=== PATIENT | female | born 1995 | race African-American/Black ===

== ENCOUNTER 2018-03-27 00:57 | Inpatient (IN) | payer MEDICAID ==
[2018-03-27] MEDS ORDERED: LR 1,000 ML IV SCH (02:30)
[2018-03-27] MEDS ORDERED: ONDANSETRON 4 MG/2 ML VIAL IVP ONE (02:30)
[2018-03-27] MEDS ORDERED: LR 500 ML IV ONE (02:30)
[2018-03-27] MEDS ORDERED: IBUPROFEN 600 MG TAB PO PRN (03:03)
[2018-03-27] MEDS ORDERED: LR 1,000 ML IV PRN (03:03)
[2018-03-27] MEDS ORDERED: MISOPROSTOL 200 MCG TAB PR PRN (03:03)
[2018-03-27] MEDS ORDERED: OLIVE OIL 118 ML BTL MISC PRN (03:03)
[2018-03-27] MEDS ORDERED: TERBUTALINE SULFATE 1 MG/ML VIAL IV PRN (03:03)
[2018-03-27] MEDS ORDERED: EPSOM SALT 454 GM TP PRN (03:03)
[2018-03-27] MEDS ORDERED: OXYTOCIN/RINGERS LACTATE 1,000 ML IV PRN (03:03)
[2018-03-27] MEDS ORDERED: LIDOCAINE 1% 300 MG/30 ML SDV SC PRN (03:03)
[2018-03-27] MEDS ORDERED: BUPIVACAINE 0.25% 30 ML SDV ONE (03:40)
[2018-03-27] MEDS ORDERED: PHENYLEPHRINE HCL 100 MCG/ML SYR ONE (03:40)
[2018-03-27 03:43] LABS: PLATELET COUNT 173 10^3/uL (150-400)
[2018-03-27] MEDS ORDERED: fentaNYL 200 MCG, BUPIVACAINE 0.5% 20 ML in NS 100 ML EP SCH (04:00)
[2018-03-27] MEDS ORDERED: ONDANSETRON 4 MG/2 ML VIAL IVP PRN (04:48)
[2018-03-27] MEDS ORDERED: PHENYLEPHRINE HCL 100 MCG/ML SYR IVP PRN (04:48)
[2018-03-27] MEDS ORDERED: METOCLOPRAMIDE 10 MG/2 ML VIAL IVP PRN (04:48)
[2018-03-27] MEDS ORDERED: NALOXONE HCL 0.4 MG/ML INJ IVP PRN (04:48)
--- NOTE | 2018-03-27 04:48 | PREANESOB ---
Obstetric Pre-Anesthesia Info - General Info Proposed Procedure: CSE : 1 Para: 0 DANIEL: 03/26/18 Gestational Age: 40 week(s) and 1 day(s) - Info Status: Full Term Monitors: External FHR Pattern: Reassuring - Labor Status Cervical Dilation per last OB SVE: 5 Station per last OB SVE: 0 PIH: No Magnesium Sulfate in Use: No Indications for Labor Analgesia: Pain Control Anesthesia Allergies/Adverse Reactions: Allergy/AdvReac Type Severity Reaction Status Date / Time No Known Allergies Allergy Unverified 03/14/16 21:10 Home Medications: Medication Instructions Recorded NK [No Known Home Meds] 03/14/16 Visit Medications: Generic Name Dose Route Start Last Admin Trade Name Freq PRN Reason Stop Dose Admin Lactated Ringer's 1,000 mls @ 125 mls/hr 03/27/18 02:30 Lr IV 09/23/18 02:29 CONT KERON Lactated Ringer's 1,000 mls @ 0 mls/hr 03/27/18 03:03 Lr IV 03/28/18 03:02 PRN PRN SEE PROTOCOL CONDITIONS Protocol Per Protocol Oxytocin/Lactated Ringer's 1,000 mls @ 125 mls/hr 03/27/18 03:03 Pitocin 20 Units/Lr (Premix) IV PRN PRN Post bleeding Fentanyl 200 mcg/ Bupivacaine 100 mls @ 0 mls/hr 03/27/18 04:00 HCl 20 ml/ Sodium Chloride EP 04/06/18 03:59 CONT KERON Protocol As Directed Ibuprofen 600 mg 03/27/18 03:03 Motrin PO ONCE PRN post , pain Lidocaine HCl 300 mg 03/27/18 03:03 Lidocaine Hcl 1% SC 09/23/18 03:02 ONCE PRN episiotomy Magnesium Sulfate 454 gm 03/27/18 03:03 Epsom Salt TP 09/23/18 03:02 Q1H PRN perineal discomfort Misoprostol 800 - 1,000 mcg 03/27/18 03:03 Cytotec [place] ONCE PRN Vaginal Atony/Bleeding [place] Oil 118 ml 03/27/18 03:03 Sweet Oil MISC 09/23/18 03:02 ONCE PRN perineal massage Terbutaline Sulfate 0.25 mg 03/27/18 03:03 Brethine IV 09/23/18 03:02 ONCE PRN Tachysystole Discontinued Medications Generic Name Dose Route Start Last Admin Trade Name Radu PRN Reason Stop Dose Admin Bupivacaine HCl Confirm 03/27/18 03:40 Sensorcaine 0.25% Sdv Administered 03/27/18 03:41 Dose 30 ml .ROUTE .STK-MED ONE Lactated Ringer's 500 mls @ 0 mls/hr 03/27/18 02:30 03/27/18 02:34 Lr IV 03/27/18 02:31 500 mls ONCE ONE Administration As Directed Ondansetron HCl 4 mg 03/27/18 02:30 03/27/18 02:34 Zofran IVP 03/27/18 02:31 4 mg ONCE ONE Administration Phenylephrine HCl Confirm 03/27/18 03:40 Neosynephrine Administered 03/27/18 03:41 Dose 1,000 mcg .ROUTE .STK-MED ONE - Anesthesia History Response to Local Anesthetics: Not Applicable Anesthesia & Operative History: No Prior Problems Family Anesthesia History: Not Applicable - Social History Substance Use/Abuse: Denies - Vital Signs Height/Weight (Nursing): Height 154.94 cm Weight 63.503 kg - Focused Exam Neck exam: FROM Mallampati Score: Class 1 Mouth exam: normal dental/mouth exam Pulmonary: no respiratory distress Cardiovascular: regular rate and rhythym Labs: 03/27/18 03:05 Patient ABO/Rh O POSITIVE 03/27/18 03:05 - Plan Consent Signed and on Chart: Yes Patient/Guardian Understands and Agrees to Plan: Yes Urgent/Emergent Case: Maximino mullen completed preop but documented later for safe timely pt care
[2018-03-27] MEDS ORDERED: fentaNYL 2MCG/ML/BUP 0.1% RTU 100 ML EP SCH (05:00)
[2018-03-27] MEDS ORDERED: LR 500 ML IV SCH (05:00)
[2018-03-27] MEDS ORDERED: OLIVE OIL 118 ML BTL ONE (06:22)
[2018-03-27] MEDS ORDERED: AMMONIA AROMATIC 1 EACH AMP IH ONE (06:22)
[2018-03-27] MEDS ORDERED: LIDOCAINE 1% 300 MG/30 ML SDV ONE (06:22)
[2018-03-27] MEDS ORDERED: TERBUTALINE SULFATE 1 MG/ML VIAL ONE (06:22)
[2018-03-27] MEDS ORDERED: MISOPROSTOL 200 MCG TAB ONE (06:23)
[2018-03-27] MEDS ORDERED: OXYTOCIN 10 UNIT/ML VIAL ONE (06:23)
[2018-03-27] MEDS ORDERED: SIMETHICONE 80 MG TAB CHEW PO PRN (10:52)
[2018-03-27] MEDS ORDERED: HYDROCORTISONE 0.5% CREAM TP PRN (10:52)
[2018-03-27] MEDS ORDERED: oxyCODONE IR 5 MG TAB PO PRN (10:52)
--- NOTE | 2018-03-27 11:02 | OBDEL ---
Info Type: Vaginal Presentation at Delivery: Vertex L&D Analgesia/Anesthesia Type: Epidural GBS+: No Intrapartum Medications: Discontinued Medications Generic Name Dose Route Start Last Admin Trade Name Radu PRN Reason Stop Dose Admin Lactated Ringer's 500 mls @ 0 mls/hr 03/27/18 02:30 03/27/18 02:34 Lr IV 03/27/18 02:31 500 mls ONCE ONE Administration As Directed Ondansetron HCl 4 mg 03/27/18 02:30 03/27/18 02:34 Zofran IVP 03/27/18 02:31 4 mg ONCE ONE Administration - Infant Care Provider News Writer/SEPTIC TANK SERVICER: Cristina Sales - Hospital Course Intrapartum: 03/27/18 11:00 Pt was began having contractions at 1:30 am. She presented to L and D @ 5 cm, received an epidural and gradually progressed to complete and +2 station. Indications for Delivery: Spontaneous Labor Vaginal Delivery - Delivery Provider Delivery Physician/CNM: Glenny Chung - Labor and Delivery Onset of Contractions Date: 03/27/18 Onset of Contractions Time: 01:30 Onset of Contractions Type: Spontaneous Rupture of Membranes Date: 03/27/18 Rupture of Membranes Time: 06:15 Rupture of Membranes Type: Spontaneous Amniotic Fluid Color: Thick Meconium Dilation Complete Date: 03/27/18 Dilation Complete Time: 09:59 Placenta Delivery Date: 03/27/18 Placenta Delivery Time: 10:36 Total Hours of Labor: 9 Laceration: 1st Degree Repair: 2-0, Vicryl Vaginal Sponge Count Correct: Yes Vaginal Needle Count Correct: Yes Vaginal Sweep Performed: Yes EBL: 300 Delivery Events: None - Medications Labor Augmentation/Induction Methods Used: None [place] Data DANIEL: 03/26/18 Gestational Age: 40 week(s) and 1 day(s) [place] Delivery Date: 03/27/18 Delivery Time: 10:32 Sex of : Female Score (1 Min): 8 Score (5 Min): 9 ICD10 Worksheet Patient Problems: Problems Problem Status Onset (spontaneous vaginal delivery) Acute - ICD10 Problem Qualifiers (1) (spontaneous vaginal delivery)
--- NOTE | 2018-03-27 11:38 | GHP ---
[f rep st] PREOP HISTORY AND PHYSICAL DATE OF ADMISSION: 03/27/2018 ADMITTING DIAGNOSIS: Intrauterine at 40-1/7 weeks' gestation, in active labor. HISTORY OF PRESENT ILLNESS: The patient is a 22-year-old, 2, para 0-0-1-0, with an unsure la st menstrual period of May , but an EDC of 03/26/2018, which was set by a 27-week ult rasound. She had course complicated by late to care, registration at 27 weeks at [facility]. She transferred to [facility] at 38 weeks because of a change in insurance. She has a complicated social history. Father of the baby is unknown and uninvolved. She is estran ged from her parents and has support from some family friends. She is from [place] [facility] and was adopted in this country at age 13. There are risk factors. She presented beginning at 1:30 in the morning having active labor contractions. She was admitted. She was 4 cm. She received an epidural . At 6:15, she had spontaneous rupture of membranes for moderate meconium. status was reassur ing. She rested and progressed to fully dilated and had a spontaneous vaginal delivery within 30 min utes of second stage. PAST OBSTETRICAL HISTORY: She admits to 1 termination of , unknown year, and this is her se cond . PAST GYNECOLOGICAL HISTORY: Menarche at age 12, interval every 28 days, length of 4-5 days. Last me nstrual period of May 2017, unsure of the exact date, and she is not sure of the father of the baby. She has no known history of sexually transmitted diseases. Did have a Pap at the beginning of this that was normal. Also, gonorrhea and chlamydia were tested and were normal. PAST MEDICAL HISTORY: She has no past medical history. PAST SURGICAL HISTORY: No past surgical history. ALLERGIES: No known drug allergies. MEDICATIONS: Her only meds include vitamins and iron supplementation. LABORATORY DATA: She is O positive, antibody negative, RPR nonreactive, rubella immune, hepatitis ne gative, HIV negative. Pap normal. Gonorrhea and chlamydia negative. One-hour GTT 57. GBS is negat gibson. SOCIAL HISTORY: Again, she is single. She works as a nanny. She immigrated from [place] at age 13 , was adopted in this country. Is estranged from her adoptive parents, and support people here are [place]. She denies tobacco, alcohol, or drug use. Did not have a urine drug screen on presentation for care. FAMILY HISTORY: Unknown because she is adopted. OBJECTIVE: VITAL SIGNS: On admission, she is afebrile. Vital signs are stable. heart tones were 130s, reactive, moderate variability, category 1. She was zee every 5 minutes. Again, when she was admitted, she was 4 cm. She spontaneously ruptured, progressed well, and had a spontane ous vaginal delivery without complications. ASSESSMENT AND PLAN: A 22-year-old, 2, para 0-0-1-0 at 40-1/7 weeks' gestation, normal spont aneous vaginal delivery without complications. We will have a social work consult to help her with h er social situation. She has good friend support at the bedside. /[id number]/MODL
[2018-03-27] MEDS: IBUPROFEN 600 MG TAB PO SCH ×2 (17:03→20:26)
[2018-03-27] MEDS: ACETAMINOPHEN 325 MG TAB PO SCH ×2 (20:23→20:24)
[2018-03-27] MEDS: DOCUSATE SODIUM 100 MG CAP PO PRN (20:25)
[2018-03-28] MEDS: IBUPROFEN 600 MG TAB PO SCH ×4 (01:44→19:30)
[2018-03-28] MEDS: ACETAMINOPHEN 325 MG TAB PO SCH ×4 (01:46→19:30)
[2018-03-28] MEDS: DOCUSATE SODIUM 100 MG CAP PO PRN (08:09)
--- NOTE | 2018-03-28 13:15 | OBPP ---
Progress Note Assessment/Plan: Assessment: 22 y/o s/p PPD #1 1st degree laceration healing well Pain well controlled with oral pain meds going well Plan: Routine pp care Plan d/c home tomorrow 03/28/18 14:46 Subjective/ Course: 03/28/18 14:47 Doing well today. States slept pretty well and pain is well controlled. Minimal vag bleeding. well. Has support person [facility] - will be discharged there to stay for the next 3 months. Objective: 03/27/18 03:05 Patient ABO/Rh O POSITIVE 03/27/18 03:05 Temp Pulse Resp BP Pulse Ox 37.1 C 92 16 99/56 L 98 03/28/18 01:21 03/28/18 01:21 03/28/18 01:21 03/28/18 01:21 03/27/18 20:30 Uterine Position/Fundal Height: Umbilicus -1 Uterine Tone: Firm Physical Exam - Physical Exam EENT: PERRL/EOMI Neck: non-tender Respiratory: lungs clear Cardiac/Chest: regular rate, rhythm Abdomen: non-tender, soft Skin: normal color, warm/dry Neuro/Psych: no motor/sensory deficits, alert, normal mood/affect, oriented x 3
--- NOTE | 2018-03-28 13:53 | POSTANESTH ---
Post Anesthetic Evaluation Cardiovascular Status: Normal, Stable Respiratory Status: Normal, Stable Level of Consciousness/Mental Status: Can Participate in Eval Pain Control: Adequate, Prn Tx Ordered Nausea/Vomiting Control: Adequate, Prn Tx Ordered Complications Possibly Related to Anesthesia: None Noted
[2018-03-29] MEDS: ACETAMINOPHEN 325 MG TAB PO SCH ×3 (01:25→18:49)
[2018-03-29] MEDS: IBUPROFEN 600 MG TAB PO SCH ×3 (01:45→18:49)
[2018-03-29] MEDS: DOCUSATE SODIUM 100 MG CAP PO PRN (01:46)
[2018-03-29 09:56] VITALS: BP 109/67
--- NOTE | 2018-03-29 11:51 | OBPP ---
Progress Note Assessment/Plan: Assessment: ppd# 2 s/p breast feeding significant social issues Plan: [facility] routine discharge instructions mood precautions 03/29/18 11:49 Subjective/ Course: 03/28/18 14:47 Doing well today. States slept pretty well and pain is well controlled. Minimal vag bleeding. well. Has support person here from [facility] - will be discharged there to stay for the next 3 months. 03/29/18 11:50 patient is doing well. pain is well controlled. normal lochia. breast feeding is going well. denies headache and changes in vision. says mood is good. has good support Objective: 03/27/18 03:05 Patient ABO/Rh O POSITIVE 03/27/18 03:05 Temp Pulse Resp BP Pulse Ox 36.4 C 90 16 109/67 94 03/29/18 08:00 03/29/18 08:00 03/29/18 08:00 03/29/18 08:00 03/29/18 08:00 Physical Exam - Physical Exam Neck: non-tender, full range of motion, supple Respiratory: chest non-tender, lungs clear, normal breath sounds Cardiac/Chest: normal peripheral pulses, regular rate, rhythm Abdomen: normal bowel sounds, non-tender, other (fundus firm and non tender) Extremities: normal range of motion, non-tender, normal inspection, normal capillary refill Skin: normal color, warm/dry Neuro/Psych: no motor/sensory deficits, alert, normal mood/affect, oriented x 3
--- NOTE | 2018-03-29 11:54 | OBGCSDC ---
General Delivery Information - General Info : 1 Para: 1 Abortions: 0 Type: Vaginal L&D Analgesia/Anesthesia Type: Epidural Admission Date: 03/27/18 Labs: Patient ABO/Rh O POSITIVE 03/27/18 03:05 Hct 42.4 % (38.0-47.0) 03/27/18 03:05 - Hospital Course Intrapartum: 03/27/18 11:00 Pt was began having contractions at 1:30 am. She presented to L and D @ 5 cm, received an epidural and gradually progressed to complete and +2 station. : 03/28/18 14:47 Doing well today. States slept pretty well and pain is well controlled. Minimal vag bleeding. well. Has support person [facility] - will be discharged there to stay for the next 3 months. 03/29/18 11:50 patient is doing well. pain is well controlled. normal lochia. breast feeding is going well. denies headache and changes in vision. says mood is good. has good support Vaginal - Delivery Provider Delivery Physician/CNM: Glenny Chung - Diagnosis Labor: Spontaneous Rupture of Membranes Type: Spontaneous Amniotic Fluid Color: Thick Meconium Laceration: 1st Degree Repair: 2-0, Vicryl Delivery Events: None - Delivery EBL: 300 [place] Data DANIEL: 03/26/18 Gestational Age: 40 week(s) and 3 day(s) Stevenson Delivery Date: 03/27/18 Delivery Time: 10:32 Sex of Infant: Female Weight (gm): 2568 kg Score (1 Min): 8 Score (5 Min): 9 Discharge Information - Discharge Information Condition: Good Instruction/Follow Up: Four Weeks (post wellness center), Six Weeks ( post visit)
--- NOTE | 2018-03-29 16:51 | ASMTCASEMG ---
Living Arrangements What is your living Answers: With Other (Not Family) arrangement? Who do you live with? Type Of Residence What kind of residence do Answers: Fdc you live in? Type of Residence Facility Name Notes: [facility] [place] [place] [facility] Used Prior to Admission Community Services Used Answers: Community Program Prior to Admission [facility] Discharge Plan Comments Coordination Status Comments Notes: Patient is a 22yo single female who just had a spontaneous vaginal delivery of a baby girl she named Trish. At nurse request, I met with the patient regarding her circumstances, support resources, follow up appointments, etc. Patient has already set up resources including wic and food stamps through the [facility]. Patient states she is fine returning to the [facility] so she can put closure to her stay there and the help she has received. Eliane states her friend, Connie sometimes "talks too much " and can confuse situations. Patient does plan to return to Connie's house when it makes sense and she is ready to do so. I met with Connie in the room and also with patient alone. Connie in her exhuberance to help sometimes does not respect boundaries. Patient reports she has 2 churches and is not just a member of the [facility] [employer]. She considers both of them to be her churches however, and wants to maintain her relationships with both. Patient is grateful for Connie's support. The [facility] has access to counselors in the community and I encouraged patient to pursue having some supportive counseling sessions set up where she can work through boundary issues in a neutral fashion and learn how to effectively maintain her boundaries with other people. 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 Connie states patient's other "grandmother" is Cait Pierson and Cait can access many resources through [facility]. Eliane states she has the names and phone numbers of a contract attorney and PILOT FUEL ENGINEER. She plans to make those appointments early tomorrow morning. Patient reports she has transportation to get her to her appointments. Patient does have sufficient resources to take care of herself and her . Connie and the churches have provided a car seat and other needed equipment. Patient did report she has taken infant care classes while she was still at [facility]. No further needs. Date Signed: 03/29/2018 04:50 PM Electronically Signed By:Keri Gonzalez LCSW
== END 2018-03-29 17:30 | disposition home or self-care (01) | DRG 560 ==
LOC: FLD 00:57 → OBSVTOIN 03:04 → FOB 14:30
PROVIDERS: ADMIT Obstetrics & Gynecology; ATTEND Obstetrics & Gynecology
PROC: 10E0XZZ Delivery of Products of Conception, External Approach (ICD-10-PCS; principal; 2018-03-27)
PROC: 0HQ9XZZ Repair Perineum Skin, External Approach (ICD-10-PCS; principal; 2018-03-27)
DX: O70.0 First degree perineal laceration during delivery (principal); O77.0 Labor and delivery complicated by meconium in amniotic fluid; Z3A.40 40 weeks gestation of pregnancy; Z37.0 Single live birth
CPT/HCPCS: J2370; J2405; J2590; J3010; J3105